=== PATIENT | female | born 1975 | race Caucasian/White ===

== ENCOUNTER 2018-06-21 08:12 | Day surgery (SDC) | payer BC ==
[2018-06-15 13:27] VITALS: BMI 41.5
[~2018-06-21 08:12] MED LIST: LACTATED RINGERS 1,000 ML IV SCH; MOXIFLOXACIN HCL 0.5% DROPS 3 ML BTL OP ONE; TETRACAINE 0.5% OPHTH (PF) DROPS 4 ML BTL OP ONE; TIMOLOL 0.5% OPHTH DROPS 5 ML BTL OP ONE
[2018-06-21] MEDS: PHENYLEPHRINE 2.5% OPHTH DRP 2ML OP NR ×3 (11:56→12:11)
[2018-06-21] MEDS: CYCLOPENTOLATE 1% OPHTH SOLN 2 ML BTL OP ONE ×3 (11:59→12:14)
[2018-06-21 12:00] VITALS: RESP 16; TEMP 98.1
[2018-06-21] MEDS ORDERED: BALANCED SALT IRRIG SOLN COMB2 15 ML IRRIG.SOLN IRRIGATION ONE (13:38)
[2018-06-21] MEDS ORDERED: HYALURONATE SODIUM INTRAOCULAR 1 EACH SYRINGE (12MG/ML) INTRAOCULA ONE (13:38)
[2018-06-21] MEDS ORDERED: LIDOCAINE 1% (PF) 10MG/ML VIAL SQ ONE (13:39)
[2018-06-21] MEDS ORDERED: MIDAZOLAM 2 MG/2 ML VIAL ONE (13:48)
[2018-06-21] MEDS ORDERED: EPINEPHrine (PF) 0.3 ML in BALANCED SALT IRRIG SOLN COMB2 500 ML IRRIGATION ONE (13:54)
--- NOTE | 2018-06-21 14:17 | P.OP ---
Date of Procedure: 06/21/18 Preoperative Diagnosis: NS & PSC & CS Postoperative Diagnosis: same Procedure(s) Performed: PIOL, OD Implants: PCB00 24.50 Anesthesia: MAC Surgeon: Siddharth Michael Estimated Blood Loss (ml): 0 Pathology: none sent Condition: stable Disposition: same day Indications for Procedure: blurry vision Operative Findings: No complications
[2018-06-21 14:41] VITALS: BP 141/91; PULSE 64
--- NOTE | 2018-06-22 07:38 | OP ---
OPERATIVE REPORT SURGEON: Dr. Siddharth Michael SALES REPRESENTATIVE [employer]: PREOPERATIVE DIAGNOSES: Nuclear sclerosis, cortical sclerosis, posterior subcapsular cataract. POSTOPERATIVE DIAGNOSES: Nuclear sclerosis, cortical sclerosis, posterior subcapsular cataract. OPERATION: Phacoemulsification of cataract and intraocular lens implant of the right eye. ESTIMATED BLOOD LOSS: Zero. SPECIMEN TAKEN: None. NARRATIVE: After obtaining the appropriate consent, the patient was brought to the Operating Room where the patient was placed under cardiac monitoring and prepped and draped in the usual sterile manner. At the 11 o'clock position a 15 degree super sharp blade was used to create a paracentesis followed by instillation of 1% Xylocaine MPF 50:50 mix with BSS into the anterior chamber. This was followed by Amvisc to stabilize the anterior chamber. At the 9 o'clock position a self-sealing corneal flap incision was created using 2.8 mm lidia keratome. A cystotome was used to initiate a continuous tear capsulorrhexis which was completed with the Utrata forceps. A Binkhorst cannula was used to hydrodissect the lens nucleus followed by hydrodelineation. Phacoemulsification of the lens was performed utilizing phaco chop in 3.58 seconds at 4% power. The remaining cortical material was removed using the irrigation aspiration mode followed by additional 1% Xylocaine MPF into the anterior chamber followed by viscoelastic to stabilize the capsular bag. An GREG PCB00 24.5 diopters posterior chamber lens was placed into the capsular bag without difficulty. The remaining viscoelastic material was removed from the anterior chamber with the irrigation/aspiration. Balanced salt solution was used to normalize the intraocular pressure. The incision was checked for watertight integrity. The patient then received two drops of 0.5% timolol followed by two drops Vigamox, was lightly patched and shielded in the usual manner. There were no complications from the procedure. The patient tolerated the procedure well and was returned to recovery in good condition. MMODL / IJN: [id number] /
== END 2018-06-21 14:50 | disposition home or self-care (01) ==
LOC: OR 08:12
PROVIDERS: ATTEND Ophthalmology
DX: H25.11 Age-related nuclear cataract, right eye (principal); H25.011 Cortical age-related cataract, right eye; H25.041 Posterior subcapsular polar age-related cataract, right eye; K21.9 Gastro-esophageal reflux disease without esophagitis; Z79.1 Long term (current) use of non-steroidal anti-inflammatories (NSAID); Z79.51 Long term (current) use of inhaled steroids; Z79.899 Other long term (current) drug therapy; Z88.1 Allergy status to other antibiotic agents
CPT/HCPCS: 81025; 66984; C1780; J2250; J0171; J2001

== ENCOUNTER 2018-07-05 08:37 | Day surgery (SDC) | payer BC ==
[2018-06-30 10:53] VITALS: BMI 41.5
[~2018-07-05 08:37] MED LIST changes: +HYDROmorphone 0.5 MG/0.5 ML SYRINGE IVP PRN; +LIDOCAINE 1% 20 ML VIAL (10MG/ML) FOR IV START INTRADERMA PRN
[2018-07-05 09:54] VITALS: TEMP 99
[2018-07-05] MEDS: CYCLOPENTOLATE 1% OPHTH SOLN 2 ML BTL OP ONE ×2 (09:54→10:00)
[2018-07-05] MEDS: PHENYLEPHRINE 2.5% OPHTH DRP 2ML OP NR ×3 (09:57→10:13)
[2018-07-05] MEDS ORDERED: CYCLOPENTOLATE 1% OPHTH SOLN 2 ML BTL OP ONE (10:09)
[2018-07-05] MEDS ORDERED: ONDANSETRON 4 MG/2 ML VIAL IVP ONE (10:40)
[2018-07-05] MEDS ORDERED: MIDAZOLAM 2 MG/2 ML VIAL ONE (10:54)
[2018-07-05] MEDS ORDERED: BALANCED SALT IRRIG SOLN COMB2 15 ML IRRIG.SOLN IRRIGATION ONE (11:00)
[2018-07-05] MEDS ORDERED: HYALURONATE SODIUM INTRAOCULAR 1 EACH SYRINGE (12MG/ML) INTRAOCULA ONE (11:00)
[2018-07-05] MEDS ORDERED: LIDOCAINE 1% (PF) 10MG/ML VIAL SQ ONE (11:00)
[2018-07-05] MEDS ORDERED: EPINEPHrine (PF) 0.3 ML in BALANCED SALT IRRIG SOLN COMB2 500 ML IRRIGATION ONE (11:02)
--- NOTE | 2018-07-05 11:24 | P.OP ---
Date of Procedure: 07/06/18 Preoperative Diagnosis: Ns & CS & PSC Postoperative Diagnosis: same Procedure(s) Performed: PIOL OS Implants: [id number] 24.50 Anesthesia: MAC Surgeon: Siddharth Michael Estimated Blood Loss (ml): 0 Pathology: none sent Condition: stable Disposition: same day Indications for Procedure: blurry vision Operative Findings: No complications
[2018-07-05 11:33] VITALS: RESP 18
[2018-07-05] MEDS ORDERED: HYDROmorphone 0.5 MG/0.5 ML SYRINGE IVP ONE (11:49)
[2018-07-05] MEDS ORDERED: HYDROcodone/APAP 5-325MG 1 EACH TAB PO ONE (11:55)
[2018-07-05 12:10] VITALS: BP 127/85; PULSE 61
--- NOTE | 2018-07-05 18:33 | OP ---
OPERATIVE REPORT DATE OF SURGERY: 07/05/2018. PROCEDURE: Phacoemulsification of cataract and intraocular lens implant of the left eye. PREOPERATIVE DIAGNOSES: Nuclear sclerosis, cortical sclerosis and posterior subcapsular cataract with regular astigmatism. POSTOPERATIVE DIAGNOSES: Nuclear sclerosis, cortical sclerosis and posterior subcapsular cataract with regular astigmatism. SURGEON: Dr. Siddharth Michael. ANESTHESIA: Topical. ESTIMATED BLOOD LOSS: None. SPECIMEN TAKEN: None. NARRATIVE: After obtaining the appropriate consent, the patient was brought to the operating room. There she was asked to sit upright, and the axes of 0 and 180 degrees were identified and marked with a gentian anni marker. She was then placed in the proper supine position under cardiac monitoring and then was prepped and draped in the usual sterile manner. She was approached from her left temporal side, and using previously acquired corneal topography information, the axis 106 degrees was identified and marked with the gentian anni marker again. At the 5 o'clock position an MVR blade was used to create a paracentesis port. Through this opening 1% Xylocaine MPF 50:50 mix with balanced salt solution was injected into the anterior chamber. This was followed by stabilization of the anterior chamber with Amvisc. At the 3 o'clock position, a 2.5 mm keratome was used to create a self-sealing corneal flap incision in a Langerman's fashion. Through this opening a cystotome was introduced to begin a continuous tear capsulorrhexis, which was completed using the Utrata forceps. Hydrodissection and hydrodelineation of the lens was accomplished with balanced salt solution. Phacoemulsification of the lens utilizing Phaco Chop was accomplished in 1.45 seconds at 4% power. Additional Xylocaine MPF was instilled into the anterior chamber. This was followed by removal of the remaining cortex under irrigation and aspiration along with careful polishing of the posterior capsule in the capsule vacuum mode. Additional Amvisc was then used to stabilize the eye, and then an GREG ZCT 150 24.5 diopter posterior chamber intraocular lens was placed into the capsular bag without difficulty. The irrigation/aspiration instrument was then brought into the eye to remove the remaining viscoelastic in addition to adjusting the lens to be oriented at the desired 106 degrees. Once this was accomplished, the eye was then brought to normal intraocular pressure through the paracentesis port with balanced salt solution and the eye was confirmed watertight. She then received 2 drops of 0.5% timolol followed by 2 drops of moxifloxacin and she was lightly patched in the usual manner. There were no complications from the procedure. She tolerated the procedure well and was returned to [facility] in good condition. JOHNNY / RANJAN: [id number] /
== END 2018-07-05 12:30 | disposition home or self-care (01) ==
LOC: OR 08:37
PROVIDERS: ATTEND Ophthalmology
DX: H25.12 Age-related nuclear cataract, left eye (principal); H25.012 Cortical age-related cataract, left eye; H25.042 Posterior subcapsular polar age-related cataract, left eye; H52.4 Presbyopia; Z96.1 Presence of intraocular lens; K21.9 Gastro-esophageal reflux disease without esophagitis; E66.01 Morbid (severe) obesity due to excess calories; Z68.41 Body mass index [BMI] 40.0-44.9, adult; Z79.1 Long term (current) use of non-steroidal anti-inflammatories (NSAID); Z79.51 Long term (current) use of inhaled steroids; Z79.899 Other long term (current) drug therapy; Z91.09 Other allergy status, other than to drugs and biological substances; Z88.1 Allergy status to other antibiotic agents
CPT/HCPCS: 81025; 66984; C1780; J2250; J2405; J0171; J2001; J1170